=== PATIENT | female | born 1945 | race Two or more races ===

== ENCOUNTER 2019-10-04 11:00 | Outpatient (CLI) | payer OTHER ==
[~2019-10-04 11:00] MED LIST: FLOVENT HFA12 G1 IH; HYDROCHLOROTHIA25 MG PO; IRBESARTAN-HCT1 EAC1 PO; PENTOXIFYLLINE400 MG PO; SINGULAIR10 MG PO; SYNTHROID75 MCG PO; TOPROL XL50 M1 PO
== END 2019-10-04 11:20 | disposition home or self-care (01) ==
LOC: NUCLEAR 11:00
DX: I82.503 Chronic embolism and thrombosis of unspecified deep veins of lower extremity, bilateral (principal)